=== PATIENT | female | born 1955 | race African-American/Black ===

== ENCOUNTER → 2017-04-27 | Outpatient (CLI) | payer OTHER ==
[~2017-04-27] MED LIST: IOPAMIDOL 370 MG/ML 200 ML INFUS..BTL INJ ONE; SODIUM CHLORIDE 0.9% 50ML 50 ML ONE
[2017-04-27 11:44] LABS: BLOOD UREA NITROGEN 8 mg/dL (7-26); BUN/CREATININE RATIO 11 (6-25); CREATININE, SERUM 0.74 mg/dL (0.57-1.11); EST GLOMERULAR FILTRATION RATE > 60 ML/MIN (60-)
--- NOTE | 2017-04-27 12:50 | Diagnostic Imaging Report ---
PROCEDURE: CT ABDOMEN AND PELVIS WITH CONTRAST TECHNIQUE: The abdomen and pelvis were scanned utilizing a multidetector helical scanner from the diaphragm to the lesser trochanter after the IV administration of 100 cc of Isovue 370 and the oral administration of water. Coronal and sagittal multiplanar reformations were obtained. COMPARISON: None. INDICATIONS: UPPER ABDOMEN PAIN FINDINGS: LOWER THORAX: Minimal linear subsegmental atelectasis or scarring in the left lower lobe. Lung bases are otherwise clear. HEPATOBILIARY: Normal hepatic size and contour. Diffuse hepatic steatosis. No focal lesions. Mild dilation of the common bile duct, which measures 8 mm at the dulce maria hepatis. No intrahepatic biliary ductal dilation. No radiopaque intraluminal filling defects. Cholecystectomy clips. SPLEEN: No splenomegaly. PANCREAS: No focal masses or ductal dilatation. ADRENALS: No adrenal nodules. KIDNEYS/URETERS: 1.4 x 1.7 x 1.7 cm simple cyst in the inferior pole of the right kidney (series 2, image 34). Subcentimeter hypodense lesion in the inferior pole of the right kidney, which is too small to characterize, but likely represents a small cyst (sagittal image 46). PELVIC ORGANS/BLADDER: Bladder is unremarkable. Uterus is absent. No adnexal masses. PERITONEUM / RETROPERITONEUM: No free air or fluid. LYMPH NODES: No lymphadenopathy. VESSELS: Mild atherosclerotic calcification of the distal abdominal aorta and proximal iliac vessels. GI TRACT: No bowel dilation or evidence of obstruction. No pericolonic inflammatory changes. Stomach is unremarkable. BONES AND SOFT TISSUES: No aggressive lytic lesion. Facet hypertrophy. L5-S1. Soft tissues are grossly unremarkable. The IMPRESSION: 1. no acute abdominopelvic abnormalities. Specifically, no acute abnormal findings in the upper abdomen to explain patient's pain. 2. Mild common bile duct dilation, likely reflecting post cholecystectomy status. MRI abdomen/MRCP may be obtained if there is clinical concern for choledocholithiasis. 3. Diffuse hepatic steatosis. No focal lesions. Rich Moss M.D. Dictated by: Rich Moss M.D. on 04/27/2017 at 12:49 Electronically approved by: Rich Moss M.D. on 04/27/2017 at 12:49
== END ==
LOC: CT 10:04
PROVIDERS: ATTEND Emergency Medicine
DX: R10.9 Unspecified abdominal pain (principal)
CPT/HCPCS: 36415; 74177; 82565; 84520; Q9967

== ENCOUNTER → 2017-10-28 | Outpatient (CLI) | payer OTHER ==
--- NOTE | 2017-10-28 13:36 | Diagnostic Imaging Report ---
EXAMINATION: Right shoulder 2 views. CLINICAL HISTORY: Right shoulder pain. COMPARISON: None. . Discussion: The osseous structures are intact without evidence of acute, displaced fracture or dislocation. No osteolytic or osteoblastic lesions. There is no evidence of a.c. separation. The glenohumeral joint is within normal limits. The soft tissues are normal. IMPRESSION: 1. No acute abnormalities. MRI of the shoulder is recommended if there is continued pain and clinical concern for ligamentous or labral injury. Signed by: Dr. Rich Moss M.D. on 10/28/2017 1:33 PM
== END ==
LOC: RAD 12:25
PROVIDERS: ATTEND Emergency Medicine
DX: M25.511 Pain in right shoulder (principal)

== ENCOUNTER → 2017-11-10 | Outpatient (CLI) | payer OTHER ==
--- NOTE | 2017-11-10 10:15 | Diagnostic Imaging Report ---
MRI of the right shoulder without contrast. History: Shoulder pain. Impingement. Decreased range of motion. Comparison: Radiographs 10/28/2017 Technique: Coronal PD FS, sagital PD FS, and axial PD and PD FS. Findings: Rotator cuff: There is rotator cuff tendinosis with midsubstance degeneration and articular sided fraying/partial tearing involving the anterior fibers of the supraspinatus and infraspinatus tendons at the humeral insertion site. Additionally, there is subscapularis tendinosis. The teres minor tendon is intact. There are reactive changes with bone marrow edema in the superior humerus. Osseous acromion complex: There is a type II acromion with mild lateral downsloping. There is moderate degenerative arthrosis at the acromioclavicular joint with undersurface spurring and narrowing of the supraspinatus tendon outlet. There is mild subacromial/subdeltoid bursitis. Glenohumeral joint: There is degeneration and fraying of the labrum. The articular cartilage surfaces are slightly thin. The humeral head is well-seated in the glenoid fossa. There is an effusion/synovitis in the rotator interval and subcoracoid space. Biceps tendon: There is intra-articular biceps tendinosis with fraying of the biceps anchor. Other findings: Negative for muscle denervation or osseous fracture. Impression: Rotator cuff tendinosis with midsubstance degeneration and articular sided fraying/partial tearing involving the anterior fibers of the supraspinatus and infraspinatus tendons at the humeral insertion site. Additionally, there is subscapularis tendinosis. Moderate degenerative arthrosis at the acromioclavicular joint with undersurface spurring and narrowing of the supraspinatus tendon outlet. There is mild subacromial/subdeltoid bursitis. Mild degenerative arthrosis in the glenohumeral joint with effusion/synovitis in the rotator interval and subcoracoid space. Intra-articular biceps tendinosis with fraying of the biceps anchor Signed by: Dr. Harvinder Malcolm M.D. on 11/10/2017 10:12 AM
== END ==
LOC: MRI 08:27
PROVIDERS: ATTEND Emergency Medicine
DX: M25.511 Pain in right shoulder (principal)